=== PATIENT | male | born 1940 | race Caucasian/White ===

== ENCOUNTER → 2016-05-22 | Outpatient (CLI) | payer MEDICARE ==
[~2016-05-22] MED LIST: ASPI1TAB69 PO; BACT400T PO; CINA30 PO; CLON0.5T PO; COLA100C3 PO; FURO1TAB60 PO; LIPI10TA PO; METF500T PO; METO25TA3 PO; PRED10 PO; RANI150T PO; TACR1CAP PO; TAMS0.4C4 PO; VITA100064 PO
[2016-05-22 11:58] LABS: HEMATOCRIT 35.3 % (39.0-51.0); MEAN CELL VOLUME 95.4 FL (80.0-100.0); MEAN CORPUSCULAR HEMOGLOBIN 30.4 PG (27.0-34.0); MEAN CORPUSCULAR HGB CONC 31.9 % (32.0-36.0); PLATELET COUNT 193 TH/MM3 (150-450); RED BLOOD COUNT 3.69 MIL/MM3 (4.50-5.90); RED CELL DISTRIBUTION WIDTH 15.3 % (11.6-17.2); REVIEW FLAG FINAL; WHITE BLOOD COUNT 11.1 TH/MM3 (4.0-11.0)
[2016-05-22 12:09] LABS: INTERNATIONAL NORMALIZED RATIO 1.1 RATIO
[2016-05-22 12:38] LABS: BICARBONATE 22.6 MEQ/L (21.0-32.0); POTASSIUM 4.3 MEQ/L (3.5-5.1)
--- NOTE | 2016-05-22 16:40 | RADRPT ---
EXAM DATE/TIME: 05/22/2016 12:55 [place] COMPARISON: No previous studies available for comparison. INDICATIONS : Evaluate for pneumothorax, pneumonia, and commicable disease. Pre op right upper extremity fistula. MEDICAL HISTORY : None. SURGICAL HISTORY : None. ENCOUNTER: Initial ACUITY: 1 day PAIN SCORE: 0/10 LOCATION: chest FINDINGS: Dense opacity at the right lung base with loss of delineation of portions of the right hemidiaphragm. There is also blunting of the right costophrenic angle. On the lateral view, there is a triangular shape configuration to the consolidation is suggesting that this may be segmental in distribution. The left lung is clear. The heart is normal size. Mild tortuosity of descending thoracic aorta. CONCLUSION: Prominent opacity at the right lung base obscuring the right hemidiaphragm suggesting either right lo wer lobe consolidation, pleural effusion, or a combination of both. Anurag Hatch MD on May 22, 2016 at 16:37 Board Certified Radiologist. This report was verified electronically.
--- NOTE | 2016-05-23 17:16 | EKG ---
Date Performed: 05/22/2016 Time Performed: 11:58:32 PTAGE: 76 years EKG: ATRIAL FIBRILLATION MARKED LEFT AXIS DEVIATION INCOMPLETE RIGHT BUNDLE BRANCH BLOCK SEPTAL MYOCARDIAL INFARCTION, PROBABLY OLD ABNORMAL ECG NO PREVIOUS TRACING DOCTOR: Kezia Woodward Interpretating Date/Time 05/23/2016 17:14:46
== END ==
LOC: CPRE 11:00
PROVIDERS: ATTEND Surgery
DX: Z01.810 Encounter for preprocedural cardiovascular examination (principal); Z01.811 Encounter for preprocedural respiratory examination; Z01.812 Encounter for preprocedural laboratory examination; N18.6 End stage renal disease
CPT/HCPCS: 36415; 71020; 80048; 85027; 85610; 93005

== ENCOUNTER → 2016-05-29 | Day surgery (SDC) | payer MEDICARE ==
[~2016-05-29] VITALS: Ht 188 cm; Wt 107.1 kg
[~2016-05-29] MED LIST changes: +*morphine SULFATE 8 MG/ML PERIprocedure ONLY ONE; +BUPIVACAINE/EPINEPHRINE 0.25% PF 30 ML VIAL ONE; +DEXAMETHASONE SOD PHOS 4 MG/ML VIAL ONE; +DO NOT ADM ANY ANTICOAGULANT DRUGS XX PRN; +FAMOTIDINE 20 MG/2 ML VIAL ONE; +HEPARIN SODIUM - SQ 10,000 UNITS/ML VIAL ONE; +HYDROCORTISONE SOD SUCCINATE 100 MG VIAL ONE; +INSULIN HUMAN REGULAR 1,000 UNITS/10 ML VIAL SQ PRN; +LACTATED RINGER'S 1000 ML IV SCH; +METOPROLOL TARTRATE 25 MG TAB PO PRN; +MIDAZOLAM HCL 2 MG/2 ML VIAL ONE; +ONDANSETRON HCL 4 MG/2 ML VIAL IV PUSH ONE; +PROPOFOL 200 MG/20 ML AMP IV ONE; +SODIUM CHLORID 0.9% 500 ML IV SCH; +ceFAZolin 2 GM PREMIX 50 ML ONE
[2016-05-29 07:30] VITALS: BP 147/77; PULSE 85; RESP 20; TEMP 97.9; O2SAT 98
--- NOTE | 2016-05-29 07:30 | PD.VS.PN ---
Pre-operative Note Pre-operative diagnosis: R UE swollen arm, s/p AVF with functional LRD kidney transplant Planned procedure: R UE access excision Labs: Hct 35 platelet 193 INR 1.1 creatinine 1.2 Blood: T&S Imaging: none needed Orders: NPO Kefzol 2g IV OCTOR Post-operative destination: PACU Operative site marked: Yes Consent: Informed consent has been obtained from Anthony Casas. I have explained the procedure in detail and discussed the risks, benefits, and potential complications. All questions have been answered. Patient contact information: [phone] I talked with the patient this morning. There are no interval changes in his health that should preclude OR today. Martin Kaiser MD May 29, 2016 07:30
--- NOTE | 2016-05-29 09:17 | HHI.PR ---
Immediate Post Op Note Procedure Date: May 29, 2016 Pre Op Diagnosis: Edematous R UE, functional AVF; functional LRD kidney transplant Post Op Diagnosis: Edematous R UE, functional AVF; functional LRD kidney transplant Surgeon: Martin Kaiser Shrimp Peeling Machine Tender(s): Adriana Coreas Procedure: R UE access excision Findings: aneurysmal access After excision, pt with palpable radial pulse Complications: none apparent Specimen(s) removed: none for pathology Estimated blood loss: 50 mL Anesthesia: LMA Drains: None Fluids: 400 mL IVF Patient to: SDS Patient Condition: Good Date/Time of Procedure: SEE SURGICAL CARE RECORD Martin Kaiser MD May 29, 2016 09:17
--- NOTE | 2016-05-29 11:37 | PD.VS.DC ---
Discharge Summary Admission Date: 05/29/16 Discharge Date: May 29, 2016 Admission Diagnosis: (1) End stage renal disease Discharge Diagnosis: (1) End stage renal disease Status: Chronic Brief History from admission Pt arrived to hospital for out pt R UE access excision Pt has a hx of Edematous R UE, functional AVF; functional LRD kidney transplant Procedure(s): R UE access excision Significant Findings A&OX3, nad noted ,GCS15 Right arm 2+ edema, better since last assessment Bilat radial pulses strong and palpable Pt denies pain numbness or tingling to [facility] Hospital Course: Pt arrives for out pt R UE access excision Pt has a hx of Edematous R UE, functional AVF; functional LRD kidney transplant Pt has done well post-op and will follow-up in our OPC on 06/09/16 Allergies Coded Allergies Type Severity Reaction Last Updated Verified Contrast Media Allergy Severe Swelling 05/29/16 Yes 05/27///173/1/173//173// 06:00 18:00 06:00 18:00 06:00 18:00 Intake Total 400 ml Output Total 50 ml Balance 350 ml Intake Other 400 ml Output Estimated Blood Loss 50 ml Procedure Category Date Status Time Lactated Ringer's MED 05/29/16 Complete 1000 Ml Inj (Lr 1000 M 06:45 Sodium Chlorid 0.9% MED 05/29/16 Complete 500 Ml Inj (Ns 500 M 06:45 Insulin Human Regular MED 05/29/16 Complete Inj (Novolin R Inj 06:45 Metoprolol Tartrate MED 05/29/16 Complete (Lopressor) 06:45 Heparin Inj (Heparin MED 05/29/16 Complete Inj) 07:32 Bupivacaine-Epi Pf MED 05/29/16 Complete 0.25% Inj (Marcaine-E 07:57 Cefazolin 2 Gm Premix MED 05/29/16 Complete (Ancef 2 Gm Premix 07:57 Midazolam Inj (Versed MED 05/29/16 Complete Inj) 08:12 Famotidine Inj MED 05/29/16 Complete (Pepcid Inj) 08:12 Dexamethasone Inj MED 05/29/16 Complete (Decadron Inj) 08:12 Hydrocortisone Inj MED 05/29/16 Complete (Solucortef Inj) 08:12 Fentanyl Inj MED 05/29/16 Complete (Fentanyl Inj) 09:37 Misc Nursing MED 05/29/16 In Process Information 09:30 *Morphine Inj MED 05/29/16 Complete (*Morphine Inj 10:20 Attending Discharge DISCHARGE 05/29/16 Transmitted Order Class Iv Pacu Ea 30 [facility] 05/29/16 Complete MIN General/Pacu [facility] 05/29/16 Complete Post Anesthesia Oxygen [facility] 05/29/16 Complete Pacu Med Holding [facility] 05/29/16 Complete Hourly Vital Signs Date Time Temp Pulse Resp B/P Pulse Ox O2 Delivery O2 Flow Rate FiO2 05/29/16 11:54 97.0 70 18 156/80 96 Room Air 05/29/16 11:30 76 16 146/84 95 Room Air 05/29/16 10:02 73 18 95 Nasal Cannula 2 05/29/16 10:00 98.0 78 18 142/92 95 Nasal Cannula 2 05/29/16 09:45 81 18 145/94 95 Nasal Cannula 2 05/29/16 09:32 97.9 73 20 138/92 97 Nasal Cannula 4 05/29/16 07:30 97.9 85 20 147/77 98 Discharge Condition: Good Discharge Disposition: Discharge Home Discharge Instructions: Keep dressing on for 2 days change daily 4x4 then kerlix then florence Elevate RUE Follow up in OPC at scheduled appt time Call the office for any questions or concerns Report any new onset fever, increased swelling or pain Stacy FORREST [facility] [phone] Any questions or concerns: Call [facility] at [facility] [phone] Stacy Diamond May 29, 2016 11:37
[2016-05-29 12:52] VITALS: BP 166/87; PULSE 76; RESP 18; TEMP 97.9; O2SAT 96
--- NOTE | 2016-05-30 08:50 | MP ---
cc: AURORA KAISER MD DATE OF SURGERY 05/29/2016 PREOPERATIVE DIAGNOSIS Right upper extremity functional access, successful living related kidney transplant. POSTOPERATIVE DIAGNOSIS Right upper extremity functional access, successful living related kidney transplant. PROCEDURE Right upper extremity access excision ATTENDING SURGEON Aurora Kaiser MD DOCTOR OF RADIOLOGY Adriana Coreas ANESTHESIA General INDICATIONS Mr. Casas is a 76 year-old gentleman with a functioning living related kidney transplant and a creatinine of 1.2. He has a large brachiocephalic fistula that is causing him arm swelling and some difficulty with wound healing. He is taken to the operating room for access excision. DESCRIPTION OF PROCEDURE Informed consent obtained from the patient. He was taken to the operating room, placed supine on the operating room table. An appropriate time out was taken to ensure the patient's operative site and planned procedure. The administration of two grams of Kefzol was initiated prior to the skin incision and will be discontinued after a single preoperative dose. Everyone in the room agree with the time out and we proceeded. The right arm was prepped and draped and the previous antecubital incision was opened with a 10 blade, carried down through the subcutaneous tissue with electrocautery. The fistula was identified and encircled and dissected up to the mid upper arm. Proximal and distal control obtained with right angle clamps. The fistula was excised and oversewn proximally and distally with 4-0 Prolene suture. Large hemoclips were placed proximally. There was a nice palpable pulse in the wrist. The wound was irrigated, made hemostatic and infiltrated with Marcaine and closed with 2-0 Polysorb and 4-0 Monocryl. Sponge and needle counts were correct at the end of the case. I was present and scrubbed for the entire procedure. MD JOSE Scott/JACKY /9:21 AM /8:37 AM
== END | disposition home or self-care (01) ==
LOC: HSDC 06:10 → EDUNIT# 08:30
PROVIDERS: ATTEND Surgery
DX: N18.6 End stage renal disease (principal); I12.0 Hypertensive chronic kidney disease with stage 5 chronic kidney disease or end stage renal disease; Z94.0 Kidney transplant status
CPT/HCPCS: 01844; 36832; 76937; J0690; J1100; J1644; J1720; J2250; J2270; J2405; J3010; J7040